=== PATIENT | male | born 1985 | race Caucasian/White ===

== ENCOUNTER 2016-11-28 06:49 | Inpatient (IN) | payer MEDICAID, OTHER ==
[~2016-11-28] VITALS: Ht 200.7 cm; Wt 90.3 kg
[~2016-11-28 06:49] MED LIST: CEPH500C PO; HYDR-1231 PO; HYDR118S10 PO
[2016-11-28] MEDS ORDERED: NS IV 1000 ML 1,000 ML IV ONE (07:14)
[2016-11-28] MEDS ORDERED: KETOROLAC 30 MG/ML VIAL IVP STA (07:14)
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
[2016-11-28 07:33] LABS: BASOPHILS % (AUTO) 0 % (0-10); EOSINOPHILS % (AUTO) 0 % (0-10); LYMPHOCYTES # (AUTO) 1.9 X 10^3 (1.0-4.0); LYMPHOCYTES % (AUTO) 11 % (12-44); MEAN CORPUSCULAR HEMOGLOBIN 30 PG (25-34); MEAN CORPUSCULAR HGB CONC 35 G/DL (32-36); MEAN CORPUSCULAR VOLUME 85 FL (80-99); MEAN PLATELET VOLUME 9.2 FL (7.4-10.4); MONOCYTES # (AUTO) 1.8 X 10^3 (0.0-1.0); MONOCYTES % (AUTO) 11 % (0-12); NEUTROPHILS # (AUTO) 13.5 X 10^3 (1.8-7.8); NEUTROPHILS % (AUTO) 78 % (42-75); PLATELET COUNT 227 10^3/uL (130-400); RED CELL DISTRIBUTION WIDTH 12.7 % (10.0-14.5); WHITE BLOOD COUNT 17.2 10^3/uL (4.3-11.0)
[2016-11-28 07:43] LABS: INR 0.9 (0.8-1.4); PROTHROMBIN TIME PATIENT 12.3 SEC (12.2-14.7)
[2016-11-28 07:52] LABS: ALANINE AMINOTRANSFERASE 50 U/L (0-55); ALBUMIN 4.5 G/DL (3.2-4.5); ANION GAP 11 MMOL/L (5-14); ASPARTATE AMINO TRANSFERASE 28 U/L (5-34); BILIRUBIN,TOTAL 2.5 MG/DL (0.1-1.0); BLOOD UREA NITROGEN 18 MG/DL (7-18); BUN/CREATININE RATIO 15; CALCIUM 9.6 MG/DL (8.5-10.1); CARBON DIOXIDE 26 MMOL/L (21-32); CHLORIDE 100 MMOL/L (98-107); CREATININE SERUM 1.17 MG/DL (0.60-1.30); GFR ESTIMATED > 60; GLUCOSE 101 MG/DL (70-105); POTASSIUM 3.7 MMOL/L (3.6-5.0); SODIUM 137 MMOL/L (135-145); TOTAL PROTEIN 7.4 G/DL (6.4-8.2); hs C REACTIVE PROTEIN 3.16 MG/DL (0.00-0.50)
[2016-11-28] MEDS ORDERED: fentaNYL INJECTION 100 MCG/2 ML AMP IVP STA ×2 (07:55→08:38)
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
[2016-11-28 08:08] LABS: LYMPHOCYTES % (MANUAL) 11 %; NEUTROPHILS % (MANUAL) 84 %
[2016-11-28] MEDS ORDERED: cefTRIAXone INJECTION 1,000 MG in NS (IVPB) 50 ML IV ONE (09:00)
[2016-11-28 10:00] VITALS: BP 129/91
[2016-11-28] MEDS ORDERED: CATHETER FLUSH 10 ML SYR IV PRN (10:30)
[2016-11-28] MEDS ORDERED: NICOTINE 14 MG (NICODERM) PATCH TD SCH (10:36)
[2016-11-28] MEDS: fentaNYL INJECTION 100 MCG/2 ML AMP IV PRN ×3 (10:52→20:58)
[2016-11-28] MEDS: CLINDAMYCIN 900 MG/50 ML IVPB 50 ML IV SCH ×2 (10:52→18:36)
[2016-11-28] MEDS: HYDROcodone/APAP 5 MG/325 MG (LORTAB) TAB PO PRN ×2 (10:52→16:46)
[2016-11-28] MEDS ORDERED: VANCOMYCIN 1,750 MG/NS 500 ML IVPB IV NR ×2 (11:00)
[2016-11-28 12:00] VITALS: BP 142/84
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
[2016-11-28] MEDS ORDERED: CATHETER FLUSH 10 ML SYR IV SCH (14:00)
[2016-11-28 16:13] VITALS: BP 129/77
[2016-11-28 20:27] VITALS: BP 135/78
[2016-11-28] MEDS ORDERED: VANCOMYCIN 1500 MG/NS 500 ML IVPB IV SCH ×2 (23:00)
[2016-11-29] MEDS ORDERED: VANCOMYCIN 1500 MG/NS 500 ML IVPB IV SCH ×2 (03:00)
[2016-11-29] MEDS ORDERED: NICOTINE PATCH REMOVAL TP SCH (09:00)
[2016-11-29] MEDS ORDERED: cefTRIAXone 1 GM/NS 50 ML IVPB IV SCH ×2 (09:00)
[2016-11-29] MEDS ORDERED: TROUGH ORDER-PHARMACY XX NR ×2 (10:00→14:00)
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
== END 2016-11-28 22:50 | disposition left against medical advice (07) | DRG 935 ==
LOC: EDUNIT# 06:49 → ER 06:52 → 4TH 09:21
PROVIDERS: ADMIT Surgery; ATTEND Surgery
PROC: 0H9FXZZ Drainage of Right Hand Skin, External Approach (ICD-10-PCS; principal; 2016-11-28)
DX: T23.241A Burn of second degree of multiple right fingers (nail), including thumb, initial encounter (principal); L03.113 Cellulitis of right upper limb; T31.0 Burns involving less than 10% of body surface; F17.210 Nicotine dependence, cigarettes, uncomplicated; F12.90 Cannabis use, unspecified, uncomplicated; F13.90 Sedative, hypnotic, or anxiolytic use, unspecified, uncomplicated; F90.9 Attention-deficit hyperactivity disorder, unspecified type; F41.9 Anxiety disorder, unspecified; Z53.21 Procedure and treatment not carried out due to patient leaving prior to being seen by health care provider; X04.XXXA Exposure to ignition of highly flammable material, initial encounter; Y99.8 Other external cause status
CPT/HCPCS: 36415; 71020; 80053; 83605; 85007; 85027; 85610; 85730; 86141; 87040; 87070; 87077; 87186; 87205; 96361; 96365; 96375; 96376

== ENCOUNTER 2016-12-11 08:52 | Outpatient (RCR) | payer MEDICAID | END 2016-12-11 16:00 | disposition home or self-care (01) | LOC: WOUNDCARE 08:52 | PROVIDERS: ATTEND Surgery | DX: T23.261A Burn of second degree of back of right hand, initial encounter (principal); T23.241A Burn of second degree of multiple right fingers (nail), including thumb, initial encounter; X04.XXXA Exposure to ignition of highly flammable material, initial encounter; Y99.8 Other external cause status | CPT/HCPCS: 16020; 99212 ==